=== PATIENT | male | born 1995 | race Caucasian/White ===

== ENCOUNTER 2017-01-12 14:58 | Inpatient (IN) | payer SELFPAY ==
--- NOTE | 2017-01-12 15:10 | EDPHY ---
H & P Stated Complaint: Abdominal pain and vomiting Time Seen by Provider: 01/12/17 15:08 HPI/ROS: CHIEF COMPLAINT: Abdominal pain and vomiting HISTORY OF PRESENT ILLNESS: The patient presents the ED with complaint abdominal pain and vomiting. The patient has self-diagnosed himself with irritable bowel syndrome. He is having intermittent abdominal pain and vomiting since the age of 19. He is not seen a bag cutter. The patient reports he is a near daily marijuana user. He denies prior history of abdominal surgery. The patient denies any melena or hematemesis. The patient rates his pain as a 5/10. REVIEW OF SYSTEMS: A comprehensive 10 point review of systems is otherwise negative aside from elements mentioned in the history of present illness. Source: Patient Exam Limitations: No limitations - Personal History Current Tetanus/Diphtheria Vaccine: Unsure Current Tetanus Diphtheria and Acellular Pertussis (TDAP): Unsure - Medical/Surgical History Hx Asthma: No Hx Chronic Respiratory Disease: No Hx Diabetes: No Hx Cardiac Disease: No Hx Renal Disease: No Hx Cirrhosis: No Hx Alcoholism: No Hx HIV/AIDS: No Hx Splenectomy or Spleen Trauma: No Other PMH: IBS - Social History Smoking Status: Never smoked - Physical Exam Exam: General Appearance: Alert, no distress Eyes: Pupils equal and round no pallor or injection ENT, Mouth: Mucous membranes moist Respiratory: There are no retractions, lungs are clear to auscultation Cardiovascular: Regular rate and rhythm Gastrointestinal: Minimal epigastric tenderness to palpation Neurological: A&O, normal motor function, normal sensory exam, normal cranial nerves Skin: Warm and dry, no rashes Musculoskeletal: Neck is supple nontender Extremities: symmetrical, full range of motion Constitutional: Initial Vital Signs Temperature (C) 37 C 01/12/17 15:00 Heart Rate 62 01/12/17 15:00 Respiratory Rate 18 01/12/17 15:00 Blood Pressure 136/93 H 01/12/17 15:00 O2 Sat (%) 99 01/12/17 15:00 O2 Delivery Mode Room Air Allergies/Adverse Reactions: No Known Allergies Allergy (Unverified 01/12/17 14:59) Home Medications: Medication Instructions Recorded NK [No Known Home Meds] 01/12/17 Medical Decision Making - Diagnostics Imaging Results: Imaging Impressions Abdomen/Pelvis Ultrasound 01/12/17 15:55 Impression: Echogenic kidneys, which can be seen with medical renal disease. Findings discussed with Marcial Ram 01/12/2017 at 1655. ED Course/Re-evaluation: The patient presents to the ED with several days of vomiting and generalized abdominal pain. The patient his self-diagnosed himself with "irritable bowel syndrome" based upon intermittent symptoms of abdominal pain and nausea which he has been experiencing for the past several years. The patient had an IV established. He received 1 L of normal saline. Laboratory studies demonstrated elevated creatinine of 4.4. The patient's potassium is normal. Bladder scan performed in the ED demonstrates a PVR of 108 ml. The patient has been informed of his elevated creatinine. He does not recall having any recent blood work over the past 1-2 years. The patient denies significant NSAID use. He does use Motrin occasionally. Patient received 2 L of normal saline. His creatinine was recheck and found to be 3.9. Urine studies have been sent. I discussed the case with Dr. Schneider from Nephrology who recommends admission to the hospital under the care of the hospitalist. He will consult on the patient tomorrow morning less needed urgently this evening. Consultation was made with the hospitalist service. I spoke with Dr. Mendieta at 6:00 p.m. who will admit the patient. Patient has no evidence of hyperkalemia, severe hypertension or fluid overload. Differential Diagnosis: Differential diagnosis considered includes dehydration, renal failure, hyperkalemia, medication side effect, chronic renal failure - Data Points Laboratory Results: Laboratory Results 01/12/17 15:20 01/12/17 17:00 01/12/17 01/12/17 01/12/17 17:00 16:30 15:20 WBC RBC Hgb Hct MCV MCH MCHC RDW Plt Count MPV Neut % (Auto) Lymph % (Auto) [place] % (Auto) Eos % (Auto) Baso % (Auto) Nucleat RBC Rel Count Absolute Neuts (auto) Absolute Lymphs (auto) Absolute Monos (auto) Absolute Eos (auto) Absolute Basos (auto) Absolute Nucleated RBC Immature Gran % Immature Gran # Sodium 139 mEq/L mEq/L 141 mEq/L mEq/L (134-144) (134-144) Potassium 3.6 mEq/L mEq/L 3.7 mEq/L mEq/L (3.5-5.2) (3.5-5.2) Chloride 104 mEq/L mEq/L 95 mEq/L L mEq/L (97-110) (97-110) Carbon Dioxide 23 mEq/l mEq/l 25 mEq/l mEq/l (22-31) (22-31) Anion Gap 12 mEq/L mEq/L 21 mEq/L H mEq/L (8-16) (8-16) BUN 33 mg/dL H mg/dL 35 mg/dL H mg/dL (7-23) (7-23) Creatinine 3.9 mg/dL H mg/dL 4.4 mg/dL H mg/dL (0.7-1.3) (0.7-1.3) Estimated GFR 19 17 Glucose 86 mg/dL mg/dL 93 mg/dL mg/dL (70-100) (70-100) Calcium 8.2 mg/dL L D mg/dL 10.0 mg/dL mg/dL (8.5-10.4) (8.5-10.4) Total Bilirubin 2.0 mg/dL H mg/dL (0.1-1.4) Conjugated Bilirubin 0.5 mg/dL mg/dL (0.0-0.5) Unconjugated Bilirubin 1.5 mg/dL H mg/dL (0.0-1.1) AST 27 IU/L IU/L (17-59) ALT 31 IU/L IU/L (21-72) Alkaline Phosphatase 68 IU/L IU/L (38-126) Total Protein 7.9 g/dL g/dL (6.3-8.2) Albumin 4.7 g/dL g/dL (3.5-5.0) Lipase 62 IU/L IU/L (23-300) Urine Color PALE YELLOW Urine Appearance CLEAR Urine pH 6.0 (5.0-7.5) Ur Specific [place] 1.004 (1.002-1.030) Urine Protein 2+ H (NEGATIVE) Urine Ketones NEGATIVE (NEGATIVE) Urine Blood 2+ H (NEGATIVE) Urine Nitrate NEGATIVE (NEGATIVE) Urine Bilirubin NEGATIVE (NEGATIVE) Urine Urobilinogen NEGATIVE EU EU (0.2-1.0) Ur Leukocyte Esterase NEGATIVE (NEGATIVE) Urine RBC 3-5 /hpf H /hpf (0-3) Urine WBC 1-3 /hpf /hpf (0-3) Ur Epithelial Cells NONE SEEN /lpf /lpf (NONE-1+) Ur Random Creatinine 81.3 mg/dL mg/dL U Random Total Protein 76 mg/dL H mg/dL (0-11) Ur Random Sodium 15 mEq/L L mEq/L (30-90) Urine Glucose NEGATIVE (NEGATIVE) 01/12/17 15:20 WBC 9.86 10^3/uL H 10^3/uL (3.80-9.50) RBC 5.71 10^6/uL 10^6/uL (4.40-6.38) Hgb 16.9 g/dL g/dL (13.7-17.5) Hct 45.9 % % (40.0-51.0) MCV 80.4 fL L fL (81.5-99.8) MCH 29.6 pg pg (27.9-34.1) MCHC 36.8 g/dL H g/dL (32.4-36.7) RDW 11.9 % % (11.5-15.2) Plt Count 201 10^3/uL 10^3/uL (150-400) MPV 11.3 fL fL (8.7-11.7) Neut % (Auto) 81.8 % H % (39.3-74.2) Lymph % (Auto) 8.5 % L % (15.0-45.0) [place] % (Auto) 8.8 % % (4.5-13.0) Eos % (Auto) 0.3 % L % (0.6-7.6) Baso % (Auto) 0.2 % L % (0.3-1.7) Nucleat RBC Rel Count 0.0 % % (0.0-0.2) Absolute Neuts (auto) 8.06 10^3/uL H 10^3/uL (1.70-6.50) Absolute Lymphs (auto) 0.84 10^3/uL L 10^3/uL (1.00-3.00) Absolute Monos (auto) 0.87 10^3/uL H 10^3/uL (0.30-0.80) Absolute Eos (auto) 0.03 10^3/uL 10^3/uL (0.03-0.40) Absolute Basos (auto) 0.02 10^3/uL 10^3/uL (0.02-0.10) Absolute Nucleated RBC 0.00 10^3/uL 10^3/uL (0-0.01) Immature Gran % 0.4 % % (0.0-1.1) Immature Gran # 0.04 10^3/uL 10^3/uL (0.00-0.10) Sodium Potassium Chloride Carbon Dioxide Anion Gap BUN Creatinine Estimated GFR Glucose Calcium Total Bilirubin Conjugated Bilirubin Unconjugated Bilirubin AST ALT Alkaline Phosphatase Total Protein Albumin Lipase Urine Color Urine Appearance Urine pH Ur Specific [place] Urine Protein Urine Ketones Urine Blood Urine Nitrate Urine Bilirubin Urine Urobilinogen Ur Leukocyte Esterase Urine RBC Urine WBC Ur Epithelial Cells Ur Random Creatinine U Random Total Protein Ur Random Sodium Urine Glucose Medications Given: Discontinued Medications Sodium Chloride (Ns) 1,000 mls @ 0 mls/hr IV EDNOW ONE; Wide Open PRN Reason: Protocol Stop: 01/12/17 15:17 Last Admin: 01/12/17 15:29 Dose: 1,000 mls Sodium Chloride (Ns) 1,000 mls @ 0 mls/hr IV EDNOW ONE; Wide Open PRN Reason: Protocol Stop: 01/12/17 16:25 Last Admin: 01/12/17 16:25 Dose: 1,000 mls Ondansetron HCl (Zofran) 4 mg IVP EDNOW ONE Stop: 01/12/17 15:17 Last Admin: 01/12/17 15:29 Dose: 4 mg Departure - Departure Disposition: [facility] Inpatient Acute Clinical Impression: Acute renal failure Condition: Fair Referrals: NONE *PRIMARY CARE P,. [Primary Care Provider] - As per Instructions
[2017-01-12] MEDS ORDERED: ONDANSETRON 4 MG/2 ML VIAL IVP ONE (15:16)
[2017-01-12] MEDS ORDERED: NS 1,000 ML IV ONE ×2 (15:16→16:24)
[2017-01-12 15:48] LABS: % IMMATURE GRANULYOCYTES 0.4 % (0.0-1.1); ABSOLUTE IMMATURE GRANULOCYTES 0.04 10^3/uL (0.00-0.10); ADD DIFF? NO; ADD MORPH? NO; ADD SCAN? NO; ATYPICAL LYMPHOCYTE FLAG 0 (0-99); FRAGMENT RBC FLAG 0 (0-99); HEMATOCRIT 45.9 % (40.0-51.0); HEMOGLOBIN 16.9 g/dL (13.7-17.5); LEFT SHIFT FLG 0 (0-99); LIPEMIA HEMOLYSIS FLAG 90 (0-99); MEAN CELL HEMOGLOBIN 29.6 pg (27.9-34.1); MEAN CELL HEMOGLOBIN CONCENTR. 36.8 g/dL (32.4-36.7); MEAN CELL VOLUME 80.4 fL (81.5-99.8); MEAN PLATELET VOLUME 11.3 fL (8.7-11.7); PLATELET CLUMPS FLAG 0 (0-99); PLATELET COUNT 201 10^3/uL (150-400); RED BLOOD CELL COUNT 5.71 10^6/uL (4.40-6.38); RED CELL DISTRIBUTION WIDTH 11.9 % (11.5-15.2)
[2017-01-12 15:53] LABS: ALANINE AMINOTRANSFERASE 31 IU/L (21-72); ALBUMIN 4.7 g/dL (3.5-5.0); ALKALINE PHOSPHATASE 68 IU/L (38-126); ANION GAP 21 mEq/L (8-16); ASPARTATE AMINOTRANSFERASE 27 IU/L (17-59); BILIRUBIN-CONJUGATED 0.5 mg/dL (0.0-0.5); BILIRUBIN-UNCONJUGATED 1.5 mg/dL (0.0-1.1); CARBON DIOXIDE 25 mEq/l (22-31); CHLORIDE 95 mEq/L (97-110); CREATININE 4.4 mg/dL (0.7-1.3); GLOMERULAR FILTRATION RATE 17; GLUCOSE 93 mg/dL (70-100); POTASSIUM 3.7 mEq/L (3.5-5.2); SODIUM 141 mEq/L (134-144); TOTAL PROTEIN 7.9 g/dL (6.3-8.2)
[2017-01-12 17:02] LABS: COLOR PALE YELLOW; LEUKOCYTE ESTERASE,URINE NEGATIVE (NEGATIVE); NITRITE,URINE NEGATIVE (NEGATIVE)
[2017-01-12 17:18] LABS: ANION GAP 12 mEq/L (8-16); CALCIUM 8.2 mg/dL (8.5-10.4); CARBON DIOXIDE 23 mEq/l (22-31); CHLORIDE 104 mEq/L (97-110); CREATININE 3.9 mg/dL (0.7-1.3); GLOMERULAR FILTRATION RATE 19; GLUCOSE 86 mg/dL (70-100); POTASSIUM 3.6 mEq/L (3.5-5.2); SODIUM 139 mEq/L (134-144)
[2017-01-12 17:43] LABS: RANDOM URINE PROTEIN 76 mg/dL (0-11)
[2017-01-12] MEDS ORDERED: ONDANSETRON 4 MG/2 ML VIAL IVP PRN (18:36)
[2017-01-12] MEDS ORDERED: ONDANSETRON DISINTEGRATING 4 MG TAB PO PRN (18:36)
[2017-01-12] MEDS ORDERED: PROMETHAZINE HCL 25 MG TAB PO PRN (18:36)
[2017-01-12] MEDS ORDERED: PROMETHAZINE HCL 25 MG/ML INJ IVP PRN (18:36)
[2017-01-12] MEDS ORDERED: ACETAMINOPHEN 325 MG TAB PO PRN (18:36)
[2017-01-12] MEDS ORDERED: CARBAMIDE PEROXIDE 15 ML OTIC.BTL EACHEAR PRN (19:45)
[2017-01-12] MEDS ORDERED: TEARS/DEXTRAN 70/HYPROMELLOSE 15 ML OPHT.BTL EACHEYE PRN (19:45)
[2017-01-12] MEDS: NS 1,000 ML IV SCH (19:53)
[2017-01-12] MEDS ORDERED: LACTULOSE 20 GM/30 ML UDCUP PO PRN (20:20)
[2017-01-12] MEDS ORDERED: POLYETHYLENE GLYCOL 3350 17 GM PKT PO PRN (20:20)
[2017-01-12] MEDS ORDERED: BISACODYL 10 MG SUPP PR PRN (20:20)
--- NOTE | 2017-01-12 20:27 | PDGENHP ---
History and Physical - Chief Complaint Acute vomiting - History of Present Illness Primary care provider: None HPI: 21-year-old male presenting with acute vomiting characterized as nonbloody , brown appearing liquid vomitus with associated nausea and abdominal pain located generally throughout the abdomen but most focally in the right hemidiaphragm and right lower back, with onset of symptoms 3 days prior and duration intermittent thereafter. Patient reports that earlier in the week he had otherwise been feeling well, and then began experiencing some abdominal pain located in the aforementioned area Saturday. The character of the pain was very similar to intermittent pain he has been experiencing in his abdomen for the past 2 years, and he has not sought medical attention for this issue. The pain is generally located in the same area, lasts for couple days, and then resolves without intervention. On the week of this presentation, the patient was experiencing some associated constipation, and he attempted utilizing over- the-counter laxatives. This resulted in nausea, as well as vomiting. He attempted to utilize a laxative and enema on the day of this presentation, and this seemed to exacerbate his nausea, resulting vomiting, and triggered him to seek medical attention. During this entire interval, the patient had attempted to maintain his oral intake of liquids, but does report that consuming anything more than a small amount of liquid seemed to exacerbate the nausea, and resultant vomiting. His oral intake of solids has been particularly low during this interval as well. He has not been taking a profound amount of nonsteroidal anti-inflammatory medications, although he has taken them intermittently as needed for pain control in the past. He also reports that in the past he has taken a protein containing supplement, but he has not taken this in approximately 2 weeks. History Information - Allergies/Home Medication List Allergies/Adverse Reactions: No Known Allergies Allergy (Unverified 01/12/17 14:59) Home Medications: Carbamide Peroxide [Debrox Ear drops (*)] 5 drop EACHEAR DAILY PRN 01/12/17 [ Last Taken 12/29/16] Ibuprofen [Motrin (*)] 600 mg PO DAILY PRN 01/12/17 [Last Taken 01/05/17] [place]-3 Fatty Acids [Fish Oil 1000 mg (*)] 1,000 mg PO DAILY 01/12/17 [Last Taken 01/05/17] Tears/Dextran 70/Hypromellose [Natural Balance Tears (*)] 1 drop EACHEYE Q2 PRN 01/12/17 [Last Taken 12/13/16] I have personally reviewed and updated: family history, medical history, social history, surgical history - Past Medical History Additional medical history: Intermittent abdominal pain symptoms for approximately 2 years - Surgical History Reports: no pertinent surgical hx - Family History Additional family history: No family history of kidney disease or dialysis, his father has had heart issues and is on systemic anticoagulation - Social History Smoking Status: Never smoked Alcohol Use: Occasionally (Has not had any heavy use recently) Drug Use: Marijuana (Regular user) Additional social history: Patient is not originally from [place], he moved here for school and has been residing here for a couple of years Review of Systems Review of Systems: ROS: 10pt was reviewed & negative except for what was stated in HPI & below Gastrointestinal: Reports: vomitting, abdominal pain, constipation, nausea Physical Exam Physical Exam: Temp Pulse Resp BP Pulse Ox 37.5 C 65 19 127/88 H 98 01/12/17 19:26 01/12/17 19:26 01/12/17 19:26 01/12/17 19:26 01/12/17 19:26 Constitutional: no apparent distress, appears nourished, not in pain Eyes: PERRL, anicteric sclera, EOMI Ears, Nose, Mouth, Throat: moist mucous membranes, hearing normal, ears appear normal, no oral mucosal ulcers Cardiovascular: regular rate and rhythym, no murmur, rub, or gallop, No edema Respiratory: no respiratory distress, no rales or rhonchi, clear to auscultation Gastrointestinal: normoactive bowel sounds, no palpable masses, tenderness ( Mild in right lower quadrant), guarding (Voluntary in right lower quadrant), No distension Genitourinary: no bladder fullness, no bladder tenderness, other (Right CVA tenderness) Skin: No abrasion, No rash (Over the back) Neurologic: AAOx3, sensation intact bilaterally, No weakness Psychiatric: interacting appropriately, not anxious, not encephalopathic, thought process linear Lab Data & Imaging Review 01/12/17 15:20 01/12/17 17:00 WBC 9.86 10^3/uL (3.80-9.50) H 01/12/17 15:20 RBC 5.71 10^6/uL (4.40-6.38) 01/12/17 15:20 Hgb 16.9 g/dL (13.7-17.5) 01/12/17 15:20 Hct 45.9 % (40.0-51.0) 01/12/17 15:20 MCV 80.4 fL (81.5-99.8) L 01/12/17 15:20 MCH 29.6 pg (27.9-34.1) 01/12/17 15:20 MCHC 36.8 g/dL (32.4-36.7) H 01/12/17 15:20 RDW 11.9 % (11.5-15.2) 01/12/17 15:20 Plt Count 201 10^3/uL (150-400) 01/12/17 15:20 MPV 11.3 fL (8.7-11.7) 01/12/17 15:20 Neut % (Auto) 81.8 % (39.3-74.2) H 01/12/17 15:20 Lymph % (Auto) 8.5 % (15.0-45.0) L 01/12/17 15:20 [place] % (Auto) 8.8 % (4.5-13.0) 01/12/17 15:20 Eos % (Auto) 0.3 % (0.6-7.6) L 01/12/17 15:20 Baso % (Auto) 0.2 % (0.3-1.7) L 01/12/17 15:20 Nucleat RBC Rel Count 0.0 % (0.0-0.2) 01/12/17 15:20 Absolute Neuts (auto) 8.06 10^3/uL (1.70-6.50) H 01/12/17 15:20 Absolute Lymphs (auto) 0.84 10^3/uL (1.00-3.00) L 01/12/17 15:20 Absolute Monos (auto) 0.87 10^3/uL (0.30-0.80) H 01/12/17 15:20 Absolute Eos (auto) 0.03 10^3/uL (0.03-0.40) 01/12/17 15:20 Absolute Basos (auto) 0.02 10^3/uL (0.02-0.10) 01/12/17 15:20 Absolute Nucleated RBC 0.00 10^3/uL (0-0.01) 01/12/17 15:20 Immature Gran % 0.4 % (0.0-1.1) 01/12/17 15:20 Immature Gran # 0.04 10^3/uL (0.00-0.10) 01/12/17 15:20 Sodium 139 mEq/L (134-144) 01/12/17 17:00 Potassium 3.6 mEq/L (3.5-5.2) 01/12/17 17:00 Chloride 104 mEq/L (97-110) 01/12/17 17:00 Carbon Dioxide 23 mEq/l (22-31) 01/12/17 17:00 Anion Gap 12 mEq/L (8-16) 01/12/17 17:00 BUN 33 mg/dL (7-23) H 01/12/17 17:00 Creatinine 3.9 mg/dL (0.7-1.3) H 01/12/17 17:00 Estimated GFR 19 01/12/17 17:00 Glucose 86 mg/dL (70-100) 01/12/17 17:00 Calcium 8.2 mg/dL (8.5-10.4) L D 01/12/17 17:00 Total Bilirubin 2.0 mg/dL (0.1-1.4) H 01/12/17 15:20 Conjugated Bilirubin 0.5 mg/dL (0.0-0.5) 01/12/17 15:20 Unconjugated Bilirubin 1.5 mg/dL (0.0-1.1) H 01/12/17 15:20 AST 27 IU/L (17-59) 01/12/17 15:20 ALT 31 IU/L (21-72) 01/12/17 15:20 Alkaline Phosphatase 68 IU/L (38-126) 01/12/17 15:20 Total Protein 7.9 g/dL (6.3-8.2) 01/12/17 15:20 Albumin 4.7 g/dL (3.5-5.0) 01/12/17 15:20 Lipase 62 IU/L (23-300) 01/12/17 15:20 Urine Color PALE YELLOW 01/12/17 16:30 Urine Appearance CLEAR 01/12/17 16:30 Urine pH 6.0 (5.0-7.5) 01/12/17 16:30 Ur Specific [place] 1.004 (1.002-1.030) 01/12/17 16:30 Urine Protein 2+ (NEGATIVE) H 01/12/17 16:30 Urine Ketones NEGATIVE (NEGATIVE) 01/12/17 16:30 Urine Blood 2+ (NEGATIVE) H 01/12/17 16:30 Urine Nitrate NEGATIVE (NEGATIVE) 01/12/17 16:30 Urine Bilirubin NEGATIVE (NEGATIVE) 01/12/17 16:30 Urine Urobilinogen NEGATIVE EU (0.2-1.0) 01/12/17 16:30 Ur Leukocyte Esterase NEGATIVE (NEGATIVE) 01/12/17 16:30 Urine RBC 3-5 /hpf (0-3) H 01/12/17 16:30 Urine WBC 1-3 /hpf (0-3) 01/12/17 16:30 Ur Epithelial Cells NONE SEEN /lpf (NONE-1+) 01/12/17 16:30 Ur Random Creatinine 81.3 mg/dL 01/12/17 16:30 U Random Total Protein 76 mg/dL (0-11) H 01/12/17 16:30 Ur Random Sodium 15 mEq/L (30-90) L 01/12/17 16:30 Urine Glucose NEGATIVE (NEGATIVE) 01/12/17 16:30 Assessment & Plan Assessment: 21-year-old male presenting with acute renal failure in the setting of nausea, vomiting, constipation, abdominal pain Plan: 1. Acute renal failure. New problem this provider, further workup indicated. Most likely etiology is hypovolemic hypoperfusion, with fractional excretion of sodium 0.6%, no evidence of bladder or renal obstruction on ultrasound, echogenic kidneys, mild proteinuria with a spot urine protein less than 1 g -discussed with Dr. Krishna Schneider, he recommends checking a phosphorus level at this time given that the patient recently utilized an enema, patient is unsure what kind it was, recommends continuing IV fluids and repeating serum creatinine level in a.m. -monitor strict I&Os, daily weights -avoid NSAIDs -hold on further autoimmune or inflammatory marker workup at this time, repeat metabolic panel, CBC, coags in a.m. 2. Nausea, vomiting, abdominal pain. Chronic, unclear etiology of the symptoms , may be secondary to cannabinoid hyperemesis -given patient's renal dysfunction, would not recommend CT imaging at this time as a noncontrast study is likely to be low yield and his liver panel is unremarkable, white blood cell count does not seem to indicate significant infection, vital signs are stable -if patient continues to have reproducible abdominal tenderness on exam after he moved his bowels, then I would recommend initiating his evaluation with an abdominal CT scan prior to discharge and recommending outpatient GI follow-up 3. Constipation. Acute, most likely secondary to poor oral intake, recommend aggressive bowel regiment with non magnesium containing agents and soapsuds/ mineral oil enemas -likely contributing to patient's abdominal discomfort symptoms Diet. Renal Prophylaxis. Low risk patient, SCDs Code. Full Disposition. Admit to inpatient given renal failure with creatinine greater than 4, will require IV fluids, workup as above, most likely several days required to achieve stabilization.
[2017-01-12] MEDS: SENNOSIDES/DOCUSATE SODIUM TAB PO SCH (20:41)
--- NOTE | 2017-01-13 01:13 | PDMN ---
Medical Necessity Medical necessity: C/M review: Acute renal failure, BUN 35, Cr 4.4, total bilirubin 2.0, acute nausea, vomiting, abdominal pain - all of unclear etiology , constipation, requiring ongoing IV fluids, workup, monitoring. MD anticipates > 2 MN LOS for ongoing med nec for eval and TX of above.
[2017-01-13 05:08] LABS: % IMMATURE GRANULYOCYTES 0.9 % (0.0-1.1); ABSOLUTE IMMATURE GRANULOCYTES 0.08 10^3/uL (0.00-0.10); ADD DIFF? NO; ADD MORPH? NO; ADD SCAN? NO; ATYPICAL LYMPHOCYTE FLAG 0 (0-99); FRAGMENT RBC FLAG 0 (0-99); HEMATOCRIT 37.7 % (40.0-51.0); HEMOGLOBIN 13.8 g/dL (13.7-17.5); LEFT SHIFT FLG 0 (0-99); LIPEMIA HEMOLYSIS FLAG 90 (0-99); MEAN CELL HEMOGLOBIN 29.6 pg (27.9-34.1); MEAN CELL HEMOGLOBIN CONCENTR. 36.6 g/dL (32.4-36.7); MEAN CELL VOLUME 80.7 fL (81.5-99.8); MEAN PLATELET VOLUME 11.2 fL (8.7-11.7); PLATELET CLUMPS FLAG 0 (0-99); PLATELET COUNT 169 10^3/uL (150-400); RED BLOOD CELL COUNT 4.67 10^6/uL (4.40-6.38); RED CELL DISTRIBUTION WIDTH 11.8 % (11.5-15.2)
[2017-01-13 05:12] LABS: INR 1.19 (0.83-1.16); PROTIME(PATIENT) 15.1 SEC (12.0-15.0)
[2017-01-13 05:13] LABS: APTT 28.4 SEC (23.0-38.0)
[2017-01-13 05:15] LABS: ALANINE AMINOTRANSFERASE 40 IU/L (21-72); ALBUMIN 3.5 g/dL (3.5-5.0); ALKALINE PHOSPHATASE 55 IU/L (38-126); ANION GAP 15 mEq/L (8-16); ASPARTATE AMINOTRANSFERASE 25 IU/L (17-59); BILIRUBIN,TOTAL 1.4 mg/dL (0.1-1.4); CALCIUM 8.8 mg/dL (8.5-10.4); CARBON DIOXIDE 19 mEq/l (22-31); CHLORIDE 105 mEq/L (97-110); CREATININE 3.9 mg/dL (0.7-1.3); GLOMERULAR FILTRATION RATE 19; GLUCOSE 75 mg/dL (70-100); MAGNESIUM 1.8 mg/dL (1.6-2.3); SODIUM 139 mEq/L (134-144); TOTAL PROTEIN 5.9 g/dL (6.3-8.2)
[2017-01-13] MEDS: NS 1,000 ML IV SCH (05:30)
[2017-01-13] MEDS ORDERED: OMEGA-3 FATTY ACIDS 1,000 MG CAP PO SCH (09:00)
[2017-01-13] MEDS: SENNOSIDES/DOCUSATE SODIUM TAB PO SCH (09:01)
--- NOTE | 2017-01-13 10:36 | SOAPPROG ---
[facility] Progress Note Assessment/Plan: Assessment: See Dictation. -Pt can go home today. -He is to follow a low potassium diet -He is to avoid NSAIDs. -He should get an RFP, CBC, Urine spot pro, alb, cr and UA on Saturday -He is to call my office to be seen by me on Saturday Plan: 01/13/17 10:34 Objective: Vital Signs Temp Pulse Resp BP Pulse Ox 36.8 C 64 15 131/88 H 98 01/13/17 07:21 01/13/17 07:21 01/13/17 07:21 01/13/17 07:21 01/13/17 07:21 Laboratory Results 01/13/17 04:35 01/13/17 04:35 01/12/17 01/13/17 01/14/17 05:59 05:59 05:59 Intake Total 1500 1250 Balance 1500 1250 PT 15.1 SEC (12.0-15.0) H 01/13/17 04:35 INR 1.19 (0.83-1.16) H 01/13/17 04:35 ICD10 Worksheet Patient Problems: Problems Problem Status Onset Acute renal failure Acute
--- NOTE | 2017-01-13 10:46 | ASDISCHSUM ---
Discharge Information Plan Status:Home with No Needs Medically Cleared to Leave:01/12/2017 Discharge Date:01/12/2017 CM D/C Disposition:Home, Routine, Self-Care ADT D/C Disposition: Projected Discharge Date:01/12/2017 Transportation at D/C:Family Discharge Delay Reason: Follow-Up Date:01/12/2017 Discharge Slot: Final Diagnosis: Placement Information Patient Contact Information Contact Name:KAITLIN Relationship:Sister Address:[address] Work Phone: City:[employer] Alternate Phone: State/Zip Code:[place] [address] Email: Financial Information Financial Class:Self-Pay Primary Plan Desc:SELF PAY Primary Plan Number: Secondary Plan Desc: Secondary Plan Number: Assessment Information Intervention Information Intervention Type:*Incorrect Registration Date of Service:01/12/2017 06:37 PM Patient Type:Inpatient Staff Member:SHERI Mckenzie, Suzette Hours:0.25 Discipline: Severity:1 (0-1 Hours) Comment:Registered observation, written admit order inpatient status.
--- NOTE | 2017-01-13 11:10 | GCON ---
[f rep st] CONSULTATION NEPHROLOGY CONSULTATION DATE OF CONSULTATION: 01/13/2017 REASON FOR CONSULTATION: Renal failure, gastrointestinal symptoms. HISTORY OF PRESENT ILLNESS: This is a pleasant and articulate 21-year-old male with past medical his tory significant for some infectious diseases during his teenage years, and some recent gastrointesti nal symptoms, who now presents with nausea, vomiting, and a creatinine of 3.9. History is obtained f rom the patient as well as his family. He is a very good historian. The patient states he has had irritable bowel type symptoms since approximately the age of 19. This has never been evaluated. His symptoms primarily consist of intermittent episodes of bloating follow ed by constipation. He tends to have anorexia and nausea during these episodes. He occasionally has vomiting. He only rarely has diarrhea. He states that by eating "clean," the symptoms typically re solve on their own. The patient notes having an evening of fairly heavy drinking on Saturday of this week. On the next , he was "hung over." He did take some nonsteroidals on that day. On and Saturday., he did h ave some flank pain and low back pain. Over Saturday, Saturday and Saturday, he then developed his stand antonio gastrointestinal symptoms, which included feelings of bloating and constipation. Relating to thi s, he did take some Ex-Lax, and also attempted use of a saline enema. He states this is the only vineet e he has ever tried using an enema before, and he denies ever using Fleets Phospho-Soda. The patient presented yesterday with the above complaints to the emergency department. He was seen b y Dr. Ram, where his creatinine was found to be 4.4. He was normotensive, and his hematocrit was 35.9. He had a renal ultrasound performed which showed no obstruction and normal sized kidneys, but did demonstrate some echogenicity. A urinalysis revealed 2+ protein and 2+ blood. He had 1 to 3 whi te blood cells, 3 to 5 red blood cells, a protein creatinine ratio of approximately 1, and a low frac tional excretion of sodium. Parvez has been hydrated overnight. Today, his blood pressure is 131/88. He feels excellent, and has no somatic complaints at all today. His creatinine came down slightly to 3.9. His albumin is somew hat low at 3.5. The patient's medical history is notable that at age 12 and 14 he did have episodes of malaria. The second episode was quite limited. He also had an episode of swine flu during his teenage years. He did spend much of his time growing up [place], and a variety of locations, including [facility], [facility] and [facility]. There is no family history of renal disease. He takes nonsteroidals approximately once a month. The patient denies sore throat. The patient states he probably has not had a blood test performed since age 13 or 14. He is unaware of ever being hypertensive. As related to the above issues, we are ask ed by Dr. Ram to assist the patient's renal diagnosis and management. PAST MEDICAL HISTORY: 1. Recurrent gastrointestinal symptoms, as noted above. 2. Near daily cannabis use. 3. History of swine flu as a teenager. 4. History of malaria and treatment x2, ages 12 and 14. PAST SURGICAL HISTORY: Essentially none. HOME MEDICATIONS: None. ALLERGIES: No known allergies. FAMILY HISTORY: No family history renal disease. SOCIAL HISTORY: The patient is present with his sister and mother who appear quite supportive. He i s presently attending classes at [employer]. He denies tobacco use. He does have recreatio nal alcohol use. REVIEW OF SYSTEMS: GENERAL: The patient denies weight loss, prolonged anorexia, fevers or chills. HEENT: He denies headache, visual disturbances, rhinitis or sore throat. RESPIRATORY: He denies coug h or shortness of breath. He denies chest pain. GASTROINTESTINAL: He has a gastrointestinal sympto ms as noted above. GENITOURINARY: He denies dysuria or urinary frequency. EXTREMITIES: He denies lower extremity edema. NEUROLOGIC: He denies neurologic symptoms. SKIN: He denies skin rashes or skin lesions except he did have a transient skin rash on his neck when his IV was placed in the emerg ency room. ENDOCRINE: He does not have a history of diabetes or thyroid disease. PHYSICAL EXAMINATION: GENERAL: At time of exam, the patient is appropriate and alert. VITAL SIGNS: Temperature 36.8, pulse 64, blood pressure 131/88. HEENT: Eyes, sclerae are clear. Oropharynx cl ear. NECK: No lymphadenopathy or thyromegaly. LUNGS: Clear auscultation bilaterally. CARDIOVASCU LAR: Regular rate and rhythm without gallops or rubs. ABDOMEN: Scaphoid, nontender. No organomega ly. GENITOURINARY/RECTAL: Deferred. EXTREMITIES: No lower extremity edema. INTEGUMENT: Clear wi thout suspicious lesions or rashes. NEUROLOGIC: No focal findings are noted. LABORATORY STUDIES: Sodium 139, potassium 4.0, bicarbonate 19, creatinine 3.9, white count 9.1, dai tocrit 37.7, MCV 80.7. Platelet count 169. IMPRESSION/PLAN: Renal failure. The patient does have an elevation in his serum creatinine level. It has decreased only slightly with hydration overnight. At this point, he appears euvolemic. An ul trasound did show some increased echogenicity. Aside from his gastrointestinal symptoms, he does not have evidence of systemic disease. Following h ydration, he has a very mild decrease in his hematocrit, and a slightly low MCV. We will check iron stores and follow this. However, it does not appear he has a major inflammatory systemic disease. I n trying to correlate his gastrointestinal symptoms with his renal issues, Henoch-Schonlein purpura c ould cause a picture like this, although I would expect him to have more hematuria and potentially a skin rash. I do believe this is relatively unlikely. If the patient were to have a more chronic cynthia vation in his creatinine, I would expect him to be more anemic than he is. Therefore, I am somewhat hopeful this is acute and is going to resolve. There is a well defined phenomenon known as nonsteroidal flank pain syndrome. In episodes of signifi cant dehydration, such as a drinking episode last week, followed by nonsteroidal intake, patients can have flank pain and acute kidney injury. This is consistent with his picture. In such case, he kelli uld resolve with conservative therapy. At the present time. I have outlined a plan. Given his potassium level is fine and he looks excelle nt, we will allow him to be discharged today. He will maintain a low-potassium diet. He will then r epeat labs on Saturday, and I will see him again on Saturday. If his kidney function recovers sponta neously, then we will not perform further evaluation. If his creatinine should not improve, he will need a renal biopsy. In addition, following this dictation, I am going to be evaluating a urine micr oscopic exam myself. I reviewed the above plan with the patient and his family. All are agreeable. We will continue to m onitor him closely. Thank you for allowing us to participate in this pleasant gentleman's care. We will continue julio cesar torres closely with you. /[id number]/MODL
[2017-01-13 11:14] VITALS: BP 129/84; PULSE 61; RESP 14; TEMP 98.3; O2SAT 96
--- NOTE | 2017-01-13 11:24 | ASMTCMCOM ---
CM Note CM Note Notes: Pt admitted with renal failure 2/2 n/v, diarrhea. Discharging home today with no CM needs. Pt self-pay, provided [employer] contact info. No other CM needs identified. He lives with his sister here in [place]. Mother present as well. Date Signed: 01/13/2017 11:23 AM Electronically Signed By:ELROY Fong
[2017-01-13 11:34] LABS: % SATURATION 26 % (20-55); TOTAL IRON BINDING CAPACITY 255 ug/dL (260-490)
--- NOTE | 2017-01-13 14:11 | GDS ---
[f rep st] DISCHARGE SUMMARY DISCHARGE DIAGNOSES: 1. Acute kidney injury presumed secondary to dehydration and NSAID use. 2. Microcytosis. 3. Suspected irritable bowel syndrome. HISTORY OF PRESENT ILLNESS: A 21-year-old male who presents after episodes of abdominal discomfort, nausea and vomiting at home, with new acute kidney injury. CONSULTATIVE SERVICES: Include Nephrology. IMAGING: On 01/12/2017, the patient had ultrasound of the kidneys, which showed normal kidneys. HOSPITAL COURSE: By issue: 1. Acute kidney injury. The patient presented with a creatinine greater than 4, with no known histo ry of renal dysfunction in the past, presumed based on history secondary to dehydration and concurren t use of NSAIDs. The patient was fluid resuscitated with normal saline and had improvement in his cr eatinine from 4.4-3.9 the morning after admission. The patient was seen by Nephrology who felt appro priate to discharge the patient with outpatient followup. The patient was tolerating normal oral int marion and had passed a normal stool the day of discharge. He has been instructed on a low potassium di et. Will present for labs in 48 hours and be seen in Dr. Schneider's clinic in 72 hours. 2. Microcytosis. The patient's iron studies have been added to his admission labs and his iron satu ration is normal. Ferritin is 268. He can continue to follow for workup in the outpatient setting. 3. IBS. The patient has not had a formal diagnosis. We recommend that he establish with an outpati ent venture capitalist, as he has had intermittent symptoms for many years. MEDICATIONS AT THE TIME OF TRANSFER: Please reference med rec printed on 01/13/2017 FOLLOWUP APPOINTMENTS: Include with Dr. Schneider on 01/16/2017. PENDING STUDIES: At the time of this dictation are none. TIME SPENT: I spent greater than 30 minutes on the planning and coordination of this discharge. /[id number]/MODL
== END 2017-01-13 12:34 | disposition home or self-care (01) | DRG 684 ==
LOC: OBSVTOIN 18:37 → F3N 18:45
PROVIDERS: ADMIT Internal Medicine; ATTEND Internal Medicine
DX: N17.9 Acute kidney failure, unspecified (principal); K58.1 Irritable bowel syndrome with constipation; F12.90 Cannabis use, unspecified, uncomplicated; E86.0 Dehydration; T39.315A Adverse effect of propionic acid derivatives, initial encounter
CPT/HCPCS: J2405